=== PATIENT | female | born 1980 | race Caucasian/White ===

== ENCOUNTER 2023-12-05 16:58 | Emergency (ER) | payer SELFPAY ==
[~2023-12-05] VITALS: Ht 154.9 cm; Wt 63.5 kg
[2023-12-05 17:25] VITALS: BP 113/50; PULSE 64; RESP 20; TEMP 98.1; O2SAT 99
[2023-12-05 18:34] LABS: APPEARANCE,URINE SLIGHTLY CLOUDY (CLEAR); BILIRUBIN,URINE NEGATIVE (NEGATIVE); BLOOD, URINE 2+ (NEGATIVE); COLOR,URINE YELLOW (YELLOW); LEUKOCYTE ESTERASE ,URINE 3+ (NEGATIVE); NITRITE, URINE POSITIVE (NEGATIVE); PROTEIN,URINE NEGATIVE (NEGATIVE); UGLUCOSE NEGATIVE (NEGATIVE); UROBILINOGEN,URINE 0.2 EU/dL (0.2 - 1)
[2023-12-05 18:36] LABS: BACTERIA,URINE 2+ /HPF (None Seen); MUCUS,URINE None Seen /LPF (None Seen); SQUAMOUS EPITHELIAL CELL,UR 4-10 (MOD) /LPF (0-3 (FEW)); WBC,URINE 16-25 (MOD) /HPF (0-5)
[2023-12-05] MEDS ORDERED: NITR100C7 PO (18:57)
[2023-12-05] MEDS ORDERED: ACET-10509 PO (18:57)
[2023-12-05] MEDS ORDERED: PHEN-1877 PO (18:57)
[2023-12-05] MEDS: KETOROLAC 30 MG/ML VIAL IM ONE (19:18)
== END 2023-12-05 19:48 | disposition home or self-care (01) ==
LOC: MED 16:58
DX: N39.0 Urinary tract infection, site not specified (principal); Z79.899 Other long term (current) drug therapy
CPT/HCPCS: 81001; 81025; 87086; 96372; 99283; J1885